=== PATIENT | male | born 1970 | race Two or more races ===

== ENCOUNTER 2018-02-11 17:24 | Emergency (ER) | payer OTHER ==
[~2018-02-11] VITALS: Ht 167.6 cm; Wt 77.1 kg
== END 2018-02-11 23:51 | disposition home or self-care (01) ==
LOC: ER 17:24
DX: S68.120A Partial traumatic metacarpophalangeal amputation of right index finger, initial encounter (principal); W45.8XXA Other foreign body or object entering through skin, initial encounter; Y93.89 Activity, other specified; Y92.832 Beach as the place of occurrence of the external cause; Y99.8 Other external cause status